=== PATIENT | female | born 1995 | race Caucasian/White ===

== ENCOUNTER 2016-09-16 17:17 | Emergency (ER) | payer OTHER, BC ==
[2016-09-16 17:25] VITALS: BP 125/85; PULSE 96; TEMP 98.7; BMI 20.7
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
== END 2016-09-16 18:44 | disposition home or self-care (01) ==
LOC: JERFT 17:17
DX: S09.8XXA Other specified injuries of head, initial encounter (principal); V43.62XA Car passenger injured in collision with other type car in traffic accident, initial encounter; Y92.414 Local residential or business street as the place of occurrence of the external cause; Y93.89 Activity, other specified
CPT/HCPCS: 99281-25